=== PATIENT | female | born 1980 | race Two or more races ===

== ENCOUNTER 2020-11-25 14:55 | Emergency (ER) | payer MEDICAID ==
[~2020-11-25] VITALS: Ht 162.6 cm; Wt 91.0 kg
[2020-11-25] MEDS ORDERED: SODIUM CHLORIDE 0.9% 1,000 ML IV ONE (16:30)
[2020-11-25 17:14] LABS: BASOPHILS % 0.5 % (0.0-2.0); EOSINOPHILS % 0.4 % (0.0-5.0); HEMATOCRIT. 38.6 % (36.0-48.0); HEMOGLOBIN. 13.4 g/dL (12.0-16.0); LYMPHOCYTES % 20.4 % (20.0-50.0); MEAN CORPUSCULAR HEMOGLOBIN 30.7 pg (28.0-32.0); MEAN CORPUSCULAR VOLUME 88.6 fL (81.0-99.0); MEAN PLATELET VOLUME 9.7 fl (7.4-10.4); MONOCYTES % 4.8 % (2.0-8.0); NEUTROPHILS % 73.9 % (40.0-76.0); PLATELET 235 x1000/uL (130-400); RED BLOOD CELL COUNT 4.36 mill/uL (4.2-5.4); RED CELL DISTRIBUTION WIDTH 13.5 % (11.6-14.6)
[2020-11-25 17:22] LABS: CHLORIDE 108 mEq/L (98-107)
[2020-11-25 17:25] LABS: HCG SCREEN NEGATIVE
[2020-11-25 18:57] VITALS: BP 127/58
== END 2020-11-25 20:08 | disposition home or self-care (01) ==
LOC: ER 14:55
DX: R55 Syncope and collapse (principal); E11.9 Type 2 diabetes mellitus without complications; H40.9 Unspecified glaucoma
CPT/HCPCS: 36415; 71045; 80053; 81025; 82962; 83880; 84484; 84703; 85025; 93005; 96360; 99285; J7030; J7040; Z7610